=== PATIENT | male | born 1965 | race Caucasian/White ===

== ENCOUNTER → 2017-01-12 | Outpatient (CLI) | payer OTHER ==
[~2017-01-12] VITALS: Ht 172.7 cm; Wt 72.2 kg
[2017-01-12 12:30] VITALS: BP 123/81; PULSE 71; Ht 172.7 cm; Wt 72.2 kg
== END | disposition home or self-care (01) ==
LOC: C.NEUR 11:30
PROVIDERS: ATTEND Internal Medicine Pulmonary Disease
DX: G47.00 Insomnia, unspecified (principal)